=== PATIENT | male | born 1990 | race African-American/Black ===

== ENCOUNTER 2016-08-16 12:07 | Emergency (ER) | payer OTHER ==
[~2016-08-16] VITALS: Ht 175.3 cm; Wt 83.9 kg
[~2016-08-16 12:07] MED LIST: PROTONIX40 MG PO; ULTRAM 50MG TAB50 MG PO; ZANTAC 150MG T150 MG PO; ZOFRAN 4 MG ORAL4 MG PO; ZOFRAN4 MG PO
[2016-08-16] MEDS ORDERED: SYMBICORT80 MCG/4.5 INH (12:45)
[2016-08-16] MEDS ORDERED: CLARITIN-D 12 H1 TA1 PO (13:56)
[2016-08-16] MEDS ORDERED: MOBIC7.5 MG PO (13:56)
== END 2016-08-16 14:14 | disposition home or self-care (01) ==
LOC: ER 12:07
DX: J06.9 Acute upper respiratory infection, unspecified (principal); J45.909 Unspecified asthma, uncomplicated; Z87.891 Personal history of nicotine dependence

== ENCOUNTER 2017-03-11 14:32 | Emergency (ER) | payer OTHER ==
[~2017-03-11] VITALS: Ht 175.3 cm; Wt 83.9 kg
[~2017-03-11 14:32] MED LIST changes: +CLARITIN-D 12 H1 TA1 PO; +MOBIC7.5 MG PO; +SYMBICORT80 MCG/4.5 INH
[2017-03-11 14:33] VITALS: BP 144/98
[2017-03-11] MEDS ORDERED: VENTOLIN HFA 1818 GM INH (14:48)
== END 2017-03-11 15:29 | disposition home or self-care (01) ==
LOC: ER 14:32
DX: J45.901 Unspecified asthma with (acute) exacerbation (principal); F10.99 Alcohol use, unspecified with unspecified alcohol-induced disorder; Z87.891 Personal history of nicotine dependence; M54.30 Sciatica, unspecified side

== ENCOUNTER 2017-07-11 12:06 | Emergency (ER) | payer OTHER ==
[~2017-07-11] VITALS: Ht 175.3 cm; Wt 89.8 kg
[~2017-07-11 12:06] MED LIST changes: +VENTOLIN HFA 1818 GM INH
[2017-07-11] MEDS ORDERED: HYDROCODONE-AP1 EAC6 PO (12:37)
[2017-07-11] MEDS ORDERED: PREDNISONE 20 M20 MG PO (12:37)
[2017-07-11] MEDS ORDERED: CYCLOBENZAPRINE5 MG PO (12:37)
== END 2017-07-11 13:00 | disposition home or self-care (01) ==
LOC: ER 12:06
DX: M54.6 Pain in thoracic spine (principal); J45.909 Unspecified asthma, uncomplicated; Z87.891 Personal history of nicotine dependence